=== PATIENT | female | born 1995 | race Caucasian/White ===

== ENCOUNTER 2017-10-07 18:36 | Emergency (ER) | payer MEDICAID, OTHER ==
[~2017-10-07] VITALS: Ht 165.1 cm; Wt 69.4 kg
[2017-10-07] MEDS ORDERED: ALBUTEROL SULFATE/IPRATROPIU 3 ML SOL IH ONE (18:50)
--- NOTE | 2017-10-07 18:56 | NUR ---
PATIENT AMB. TO BED#12. MONITORED
[2017-10-07 18:57] VITALS: BP 123/70
--- NOTE | 2017-10-07 19:00 | NUR ---
PT IS A 22 Y/O F CAME IN WITH CHEST DISCOMFORT ONLY WITH COUGH X1DAY. DIMINISHED BREATH SOUNDS NOTED BILATERALLY. PT IS AAOX4, NO ACUTE S/S OF DISTRESS NOTED. DR. RAMIREZ MADE AWARE. N ORDERED.HX:ASTHMA, TAKING ALBUTEROL INHALER. WILL CONTINUE TO MONITOR
--- NOTE | 2017-10-07 20:15 | NUR ---
Patient discharged with v/s stable. Written and verbal after care instructions given and explained. Patient alert, oriented and verbalized understanding of instructions. Ambulatory with steady gait. All questions addressed prior to discharge. ID band removed. Patient advised to follow up with PMD. Rx of PREDNISONE AND ALBUTEROL given. Patient educated on indication of medication including possible reaction and side effects. Opportunity to ask questions provided and answered.
[2017-10-07 20:16] VITALS: BP 126/68
== END 2017-10-07 20:15 | disposition home or self-care (01) ==
LOC: MED 18:36
DX: J45.909 Unspecified asthma, uncomplicated (principal)
CPT/HCPCS: 94640; 99283; J7030; J7620

== ENCOUNTER 2018-01-29 14:38 | Emergency (ER) | payer OTHER ==
[~2018-01-29] VITALS: Ht 157.5 cm; Wt 72.3 kg
[2018-01-29 14:45] VITALS: BP 97/48
--- NOTE | 2018-01-29 14:52 | NUR ---
PT AMBULATES TO BED 5
--- NOTE | 2018-01-29 14:55 | NUR ---
22/F BIB FAMILY C/O CHEST WALL PAIN UPON COUGHING OR INTAKE OF DEEP BREATH X 4 DAYS ADMITS TO PRODUCTIVE COUGH, FEVER CHILLS BODYACHES. HX--ASTHMA, ADHD. RX---ALBUTEROL, ADDERALL.DENIES N/V/D; SKIN IS PINK/WARM/DRY; AAOX4 WITH EVEN AND STEADY GAIT; LUNGS DIMINISH BL;PATIENT STATES PAIN OF 9/10 AT THIS TIME. PATIENT POSITIONED FOR COMFORT; HOB ELEVATED; BEDRAILS UP X2; BED DOWN. ER MD MADE AWARE OF PT STATUS.
[2018-01-29] MEDS ORDERED: cefTRIAXone 1,000 MG in LIDOCAINE 1% ***ER ONLY *** 2.1 ML IM ONE (16:25)
[2018-01-29] MEDS ORDERED: DEXAMETHASONE 10 MG/ML VIAL IM ONE (16:25)
[2018-01-29] MEDS ORDERED: ALBUTEROL SULFATE/IPRATROPIU 3 ML SOL IH ONE (16:25)
[2018-01-29] MEDS ORDERED: cefTRIAXone 1,000 MG VIAL ONE (16:32)
[2018-01-29] MEDS ORDERED: LIDOCAINE MPF 1% - **ER/OR** 5 ML ONE (16:33)
--- NOTE | 2018-01-29 16:45 | NUR ---
RT AT BEDSIDE FOR BREATHING TREATMENT.
--- NOTE | 2018-01-29 18:52 | NUR ---
Patient discharged with v/s stable. Written and verbal after care instructions given and explained. Patient alert, oriented and verbalized understanding of instructions. Ambulatory with steady gait. All questions addressed prior to discharge. ID band removed. Patient advised to follow up with PMD. Rx of ALBUTEROL, PREDNISONE& AZITHROMYCIN given. Patient educated on indication of medication including possible reaction and side effects. Opportunity to ask questions provided and answered.
[2018-01-29 18:53] VITALS: BP 131/71
== END 2018-01-29 18:52 | disposition home or self-care (01) ==
LOC: MED 14:38
DX: J45.901 Unspecified asthma with (acute) exacerbation (principal); F12.10 Cannabis abuse, uncomplicated
CPT/HCPCS: 71046; 81025; 94640; 96372; 99285; J0696; J1100; J2001; J7620

== ENCOUNTER 2018-03-17 14:19 | Emergency (ER) | payer OTHER ==
[~2018-03-17] VITALS: Ht 160 cm; Wt 71.2 kg
[2018-03-17 14:28] VITALS: BP 117/70
[2018-03-17 15:40] VITALS: BP 115/68
== END 2018-03-17 15:40 | disposition home or self-care (01) ==
LOC: MED 14:19
DX: S01.01XA Laceration without foreign body of scalp, initial encounter (principal); J45.909 Unspecified asthma, uncomplicated; Y04.2XXA Assault by strike against or bumped into by another person, initial encounter; Y93.89 Activity, other specified; Y92.89 Other specified places as the place of occurrence of the external cause; Y99.8 Other external cause status
CPT/HCPCS: 12001; 90471; 90715; 99283

== ENCOUNTER 2018-03-26 12:48 | Emergency (ER) | payer OTHER ==
[~2018-03-26] VITALS: Ht 165.1 cm; Wt 71.7 kg
[2018-03-26 12:49] VITALS: BP 125/83
--- NOTE | 2018-03-26 12:57 | NUR ---
PT AMBULATED BACK TO ER LOBBY WAITING FOR OPEN ER BED.
--- NOTE | 2018-03-26 13:10 | NUR ---
CALLED PATIENT AT THE LOBBY AND NO RESPONSE.
--- NOTE | 2018-03-26 13:30 | NUR ---
CALLED PATIENT AT THE LOBBY AND NO RESPONSE FROM PATIENT.
--- NOTE | 2018-03-26 14:15 | NUR ---
CALLED PATIENT FOR RE ASSESS. NO RESPONSE AT THIS TIME.PATIENT LEFT WITHOUT BEING SEEN BY DR. RAMIREZ. NO FURTHER CARE PROVIDED FOR PATIENT.
== END 2018-03-26 14:15 | disposition left against medical advice (07) ==
LOC: MED 12:48
DX: S01.01XD Laceration without foreign body of scalp, subsequent encounter (principal); Z53.21 Procedure and treatment not carried out due to patient leaving prior to being seen by health care provider

== ENCOUNTER 2018-03-27 11:21 | Emergency (ER) | payer OTHER ==
[~2018-03-27] VITALS: Ht 165.1 cm; Wt 68.0 kg
[2018-03-27 11:28] VITALS: BP 75/47
--- NOTE | 2018-03-27 11:40 | NUR ---
22 YO F BIB SELF FOR STAPLE REMOVAL TO THE RIGHTER OCCIPTAL PORTION OF THE HEAD. AMALIA PLACED HERE 10 DAYS AGO. PT AAOX4. GCS 15. NO SCABBING NOR DRAINAGE NOTED TO SITE. HX DENIES RX DENIES
--- NOTE | 2018-03-27 12:04 | NUR ---
DR RONQUILLO AT BEDSIDE FOR STAPLE REMOVAL. 2 AMALIA REMOVED. PT TOLERATED WELL.
[2018-03-27] MEDS ORDERED: NEOMYCIN/POLYMYXIN/BACITRACIN 0.9 GM/1 PKT TP ONE (12:05)
[2018-03-27 12:25] VITALS: BP 100/56
--- NOTE | 2018-03-27 12:25 | NUR ---
Patient discharged with v/s stable. Written and verbal after care instructions given and explained. Patient verbalized understanding. Ambulatory with steady gait. All questions addressed prior to discharge. Advised to follow up with PMD.
== END 2018-03-27 12:25 | disposition home or self-care (01) ==
LOC: MED 11:21
DX: S01.01XD Laceration without foreign body of scalp, subsequent encounter (principal); J45.909 Unspecified asthma, uncomplicated; X58.XXXD Exposure to other specified factors, subsequent encounter
CPT/HCPCS: 99283

== ENCOUNTER 2018-05-24 14:44 | Emergency (ER) | payer OTHER ==
[~2018-05-24] VITALS: Ht 165.1 cm; Wt 71.7 kg
--- NOTE | 2018-05-24 14:55 | NUR ---
PT AMBULATES TO BED 9
[2018-05-24 14:57] VITALS: BP 123/73
--- NOTE | 2018-05-24 15:03 | NUR ---
PATIENT CAME IN FOR RT. ARM PAIN/LIMITED MOVEMENT FOR 5 DAYS. PLAYING AROUND AND THINKS SHE PULLED HER MUSCLE. DENIES FALL
--- NOTE | 2018-05-24 15:14 | NUR ---
Patient being evaluated by physician at bedside.
[2018-05-24] MEDS ORDERED: KETOROLAC 60 MG/2 ML VIAL IM ONE (15:15)
--- NOTE | 2018-05-24 15:16 | NUR ---
22/ CAME IN ED, C/O 03/20 SHARP CONSTANT R ELBOW PAIN, RADIATING TO R FA, X5 DAYS. PT STATED SHE WAS "PLAYING AROUND WITH FRIEND, HIT WRONG." R ARM WITH NO OBVIOUS ABNORMALITIES, SKIN INTACT, WARM AND DRY, +CIRCULATION, +SENSATION, DECREASED ROM DUE TO PAIN, CAP REFILL <3S. LUNG SOUNDS CLEAR BL. PT DENIES ANY FEVER, CP, SOB, N/V. HX ASTHMA RX INHALER
--- NOTE | 2018-05-24 15:27 | NUR ---
MEDICATED FOR RT.ARM PAIN
[2018-05-24 15:55] VITALS: BP 125/78
== END 2018-05-24 15:55 | disposition home or self-care (01) ==
LOC: MED 14:44
DX: S50.01XA Contusion of right elbow, initial encounter (principal); J45.909 Unspecified asthma, uncomplicated; W22.8XXA Striking against or struck by other objects, initial encounter; Y93.89 Activity, other specified; Y92.89 Other specified places as the place of occurrence of the external cause; Y99.8 Other external cause status
CPT/HCPCS: 96372; 99283; J1885

== ENCOUNTER 2019-03-14 01:01 | Emergency (ER) | payer OTHER ==
[~2019-03-14] VITALS: Ht 165.1 cm; Wt 68.0 kg
[2019-03-14 01:10] VITALS: BP 151/84
[2019-03-14] MEDS ORDERED: KETOROLAC 60 MG/2 ML VIAL IM ONE (01:35)
[2019-03-14] MEDS ORDERED: ONDANSETRON 4 MG ODT PO ONE (01:50)
[2019-03-14 02:10] VITALS: BP 140/80
== END 2019-03-14 02:10 | disposition home or self-care (01) ==
LOC: MED 01:01
DX: N39.0 Urinary tract infection, site not specified (principal); R11.2 Nausea with vomiting, unspecified; J45.909 Unspecified asthma, uncomplicated; F12.10 Cannabis abuse, uncomplicated
CPT/HCPCS: 81002; 81025; 96372; 99283; J1885; Q0162

== ENCOUNTER 2019-08-23 18:07 | Emergency (ER) | payer OTHER ==
[~2019-08-23] VITALS: Ht 165.1 cm; Wt 68.0 kg
[2019-08-23 18:39] VITALS: BP 136/88
--- NOTE | 2019-08-23 19:54 | NUR ---
24 YEAR OLD FEMALE COMPLAINS OF COUGH X 1 WEEK. PATIENT STATES THAT SHE WOULD ALSO HAVE CHEST PAIN FROM COUGHING SO MUCH. LUNGS CTABL, BREATHING EVEN AND UNLABORED, SPO2 99%. PATIENT ALERT AND ORIENTED, BREATHING EVEN AND UNLABORED, SKIN WARM AND DRY. BED IN LOWEST POSITION, LOCKED, BED RAIL UPX1. PMH - ASTHMA, SMOKING MEDICATIONS - DENIES ALLERGIES - NKA
[2019-08-23 20:30] VITALS: BP 130/87
--- NOTE | 2019-08-23 20:30 | NUR ---
Patient discharged with v/s stable. Written and verbal after care instructions ABOUT ACUTE BRONCHITIS given and explained. Patient alert, oriented and verbalized understanding of instructions. Ambulatory with steady gait. All questions addressed prior to discharge. ID band removed. Patient advised to follow up with PMD. Rx of ALBUTEROL, GUAIATUSSIN, AND PREDNISONE given. Patient educated on indication of medication including possible reaction and side effects. Opportunity to ask questions provided and answered.
== END 2019-08-23 20:30 | disposition home or self-care (01) ==
LOC: MED 18:07
DX: J20.9 Acute bronchitis, unspecified (principal); J45.909 Unspecified asthma, uncomplicated; F17.210 Nicotine dependence, cigarettes, uncomplicated; Z71.9 Counseling, unspecified
CPT/HCPCS: 99283